=== PATIENT | female | born 1945 ===

== ENCOUNTER 2022-06-10 15:09 | Emergency (ER) | payer MEDICARE, OTHER ==
[2022-06-10] MEDS ORDERED: TRANEXAMIC ACID 1,000 MG/10 ML VIAL IR ONE (18:15)
[2022-06-10] MEDS ORDERED: OXYMETAZOLINE NASAL 0.05% 15 ML SPRAY NS ONE ×2 (18:15→18:23)
[2022-06-10] MEDS ORDERED: TRANEXAMIC ACID 1,000 MG/10 ML VIAL ONE (18:23)
== END 2022-06-10 19:58 | disposition home or self-care (01) ==
LOC: ER 15:11
DX: R04.0 Epistaxis (principal)
CPT/HCPCS: 30901; A4663